=== PATIENT | male | born 1955 | race Caucasian/White ===

== ENCOUNTER 2021-03-12 13:49 | Observation (INO) ==
[2021-03-12] MEDS ORDERED: DEXTROSE 50% 25 GM/50 ML VIAL IV PRN ×2 (16:31→17:38)
[2021-03-12] MEDS ORDERED: DOCUSATE SODIUM 100 MG CAPSULE PO PRN (16:31)
[2021-03-12] MEDS ORDERED: MORPHINE 2 MG/1 ML SYRINGE IV PRN (16:31)
[2021-03-12] MEDS ORDERED: GLUCAGON 1 MG VIAL IM PRN ×2 (16:31→17:38)
[2021-03-12] MEDS ORDERED: ACETAMINOPHEN 325 MG TABLET PO PRN (16:31)
[2021-03-12] MEDS ORDERED: ONDANSETRON 4 MG/2 ML VIAL IV PRN (16:31)
[2021-03-12] MEDS ORDERED: NITROGLYCERIN SL 0.4 MG TABLET SL PRN (16:36)
[2021-03-12 16:58] LABS: Basophils % 0.3 % (0.0-0.8); Eosinophils # 0.1 10*3/uL (0.0-0.87); Eosinophils % 0.8 % (0.00-10.9); Hematocrit 39.3 VOL% (42.0-52.0); Hemoglobin 12.7 GM/DL (14.0-18.0); Immature Granulocytes % 0.3 %; Immature Granulocytes Absolute 0.03 #; Lymphocytes # 2.2 10*3/uL (1.4-4.0); Lymphocytes % 25.1 % (21.2-54.2); Mean Corpuscular HGB Conc 32.3 GM/DL (32-36); Mean Corpuscular Volume 96.3 FL (87-102); Mean Platelet Volume 11.1 FL (9.6-12.0); Monocytes % 15.1 % (1.7-12.7); Neutrophils % 58.4 % (38.7-73.9); Platelet Count 172 T/CUMM (130-400); Red Blood Count 4.08 MC/CUMM (3.8-5.5); Red Cell Distribution Width 12.3 % (9.3-17.3); White Blood Count 8.7 T/CUMM (4-12)
[2021-03-12] MEDS: ENOXAPARIN 40 MG/0.4 ML SYRINGE SUBCUT SCH (17:08)
[2021-03-12 17:19] LABS: Albumin 3.6 G/DL (3.4-5.0); Bilirubin,Total 0.5 MG/DL (0.20-1.00); Calcium 9.1 MG/DL (8.5-10.1); Osmolality,Calculated 285.1 MOS/KG (273-304); Potassium 3.6 MMOL/L (3.5-5.1); Total Protein 6.5 G/DL (6.4-8.2)
[2021-03-12] MEDS: INSULIN LISPRO 100 UNIT/ML SUBCUT SCH (20:37)
[2021-03-13 06:00] LABS: Basophils % 0.3 % (0.0-0.8); Eosinophils # 0.2 10*3/uL (0.0-0.87); Eosinophils % 2.5 % (0.00-10.9); Hematocrit 36.5 VOL% (42.0-52.0); Immature Granulocytes % 0.4 %; Immature Granulocytes Absolute 0.03 #; Lymphocytes # 2.2 10*3/uL (1.4-4.0); Lymphocytes % 29.8 % (21.2-54.2); Mean Corpuscular HGB Conc 32.9 GM/DL (32-36); Mean Corpuscular Volume 96.3 FL (87-102); Mean Platelet Volume 11.6 FL (9.6-12.0); Monocytes % 16.5 % (1.7-12.7); Neutrophils % 50.5 % (38.7-73.9); Platelet Count 149 T/CUMM (130-400); Red Blood Count 3.79 MC/CUMM (3.8-5.5); Red Cell Distribution Width 12.3 % (9.3-17.3); White Blood Count 7.3 T/CUMM (4-12)
[2021-03-13 06:28] LABS: Eosinophils 1 % (0-10); Hypochromasia Slight; Lymphocytes 40 % (20-55); Microcytosis Slight; Platelet Estimate Adequate; Segmented Neutrophils 47 % (50-85); Total Cells Counted 100
[2021-03-13 06:59] LABS: Calcium 8.8 MG/DL (8.5-10.1); Osmolality,Calculated 285.1 MOS/KG (273-304); Risk Ratio 3.05; Thyroid Stimulating Hormone 1.74 uIU/ml (0.358-3.74); VLDL Cholesterol 19.4 MG/DL
[2021-03-13] MEDS ORDERED: TRIAMCINOLONE ACETONIDE 55 MCG BOTH NARES PRN (07:22)
[2021-03-13] MEDS: INSULIN LISPRO 100 UNIT/ML SUBCUT SCH ×4 (07:26→21:25)
[2021-03-13] MEDS ORDERED: DOXAZOSIN 2 MG TABLET PO SCH (09:00)
[2021-03-13] MEDS: allopurinoL 100 MG TABLET PO SCH (09:20)
[2021-03-13] MEDS: TAMSULOSIN 0.4 MG CAPSULE PO SCH (09:21)
[2021-03-13] MEDS: PANTOPRAZOLE 40 MG TABLET PO SCH (09:21)
[2021-03-13] MEDS: MONTELUKAST 10 MG TABLET PO SCH (09:21)
[2021-03-13] MEDS: LOSARTAN 50 MG TABLET PO SCH (09:21)
[2021-03-13] MEDS: DOXAZOSIN 1 MG TABLET PO SCH ×2 (09:21→21:24)
[2021-03-13] MEDS: METOPROLOL SUCCINATE XL 100 MG TABLET PO SCH (09:21)
[2021-03-13] MEDS: VITAMIN E 400 UNIT CAPSULE PO SCH ×2 (09:21→21:24)
[2021-03-13] MEDS: ASPIRIN EC 325 MG TABLET PO SCH (09:21)
[2021-03-13] MEDS: ALBUTEROL/IPRATROPIUM 3 ML NEB RESP TX SCH ×2 (12:29→20:05)
[2021-03-13] MEDS: cefTRIAXone 1,000 MG in SODIUM CHLORIDE 0.9% 100 ML IV SCH (12:51)
[2021-03-13] MEDS: AZITHROMYCIN INJ 500 MG in SODIUM CHLORIDE 0.9% 250 ML IV SCH (14:49)
[2021-03-13] MEDS: ENOXAPARIN 40 MG/0.4 ML SYRINGE SUBCUT SCH (16:17)
[2021-03-13] MEDS ORDERED: LORATADINE 10 MG TABLET PO SCH (21:00)
[2021-03-14 06:13] LABS: Basophils % 0.5 % (0.0-0.8); Eosinophils # 0.3 10*3/uL (0.0-0.87); Hematocrit 39.3 VOL% (42.0-52.0); Hemoglobin 12.4 GM/DL (14.0-18.0); Immature Granulocytes % 0.3 %; Immature Granulocytes Absolute 0.02 #; Lymphocytes # 2.7 10*3/uL (1.4-4.0); Lymphocytes % 41.8 % (21.2-54.2); Mean Corpuscular HGB Conc 31.6 GM/DL (32-36); Mean Corpuscular Volume 96.8 FL (87-102); Mean Platelet Volume 11.8 FL (9.6-12.0); Monocytes % 13.4 % (1.7-12.7); Platelet Count 168 T/CUMM (130-400); Red Blood Count 4.06 MC/CUMM (3.8-5.5); Red Cell Distribution Width 12.3 % (9.3-17.3); White Blood Count 6.5 T/CUMM (4-12)
[2021-03-14 06:30] LABS: Osmolality,Calculated 285.1 MOS/KG (273-304); Potassium 3.6 MMOL/L (3.5-5.1)
[2021-03-14] MEDS: ALBUTEROL/IPRATROPIUM 3 ML NEB RESP TX SCH ×2 (07:15)
[2021-03-14] MEDS: DOXAZOSIN 1 MG TABLET PO SCH (10:22)
[2021-03-14] MEDS: INSULIN LISPRO 100 UNIT/ML SUBCUT SCH ×2 (10:22→13:04)
[2021-03-14] MEDS: TAMSULOSIN 0.4 MG CAPSULE PO SCH (10:22)
[2021-03-14] MEDS: allopurinoL 100 MG TABLET PO SCH (10:22)
[2021-03-14] MEDS: ASPIRIN EC 325 MG TABLET PO SCH (10:23)
[2021-03-14] MEDS: METOPROLOL SUCCINATE XL 100 MG TABLET PO SCH (10:25)
[2021-03-14] MEDS: LOSARTAN 50 MG TABLET PO SCH (10:26)
[2021-03-14] MEDS: PANTOPRAZOLE 40 MG TABLET PO SCH (10:26)
[2021-03-14] MEDS: VITAMIN E 400 UNIT CAPSULE PO SCH (10:26)
[2021-03-14] MEDS: cefTRIAXone 1,000 MG in SODIUM CHLORIDE 0.9% 100 ML IV SCH (10:27)
[2021-03-14] MEDS: MONTELUKAST 10 MG TABLET PO SCH (10:32)
[2021-03-14 11:25] VITALS: BP 140/65
[2021-03-14] MEDS: AZITHROMYCIN INJ 500 MG in SODIUM CHLORIDE 0.9% 250 ML IV SCH (12:55)
== END 2021-03-14 14:44 | disposition home or self-care (01) ==
LOC: N.TELES → SUATTDRO 15:29
PROVIDERS: ADMIT Internal Medicine; ATTEND Hospitalist